=== PATIENT | female | born 1995 ===

== ENCOUNTER 2020-07-06 13:13 | Outpatient (REF) | payer OTHER, SELFPAY ==
[2020-07-06 14:00] LABS: Hematocrit 40.3 % (37-47); Hemoglobin 12.9 g/dl (12.0-16.0); Mean Corpuscular Hemoglobin 27.5 pg (27.0-33.0); Mean Corpuscular Volume 85.9 fL (80-98); Mean Platelet Volume 10.7 fL (9.4-12.3); Platelet Count 263 X10*3/uL (160-400); Red Blood Count 4.69 X10*6/uL (4.20-5.50); White Blood Count 6.7 X10*3/uL (4.8-10.8)
[2020-07-06 14:39] LABS: TSH reflex Free T4 1.09 uIU/mL (0.32-4.0)
[2020-07-06 14:44] LABS: Alanine Aminotransferase 20 U/L (0-31); Albumin Level 4.5 g/dL (3.5-5.0); Alkaline Phosphatase 56 U/L (39-117); Anion Gap 11 (12-20); Aspartate Amino Transferase 23 U/L (5-31); Bilirubin Total 0.9 mg/dL (0.0-1.0); Blood Urea Nitrogen 13 mg/dL (9-16); Carbon Dioxide 25 mmol/L (22-29); Chloride 105 mmol/L (96-108); Cholesterol 197 mg/dL; Estimated Glomerular Filt Rate > 60; Glucose Fasting 89 mg/dL (60-99); HDL Cholesterol 79 mg/dL; Iron 105 mcg/dL (30-160); LDL Cholesterol Calculated 110 mg/dl; Percent Iron Saturation 31 % (15-50); Potassium 4.3 mmol/L (3.3-5.1); Sodium 137 mmol/L (135-145); Total Iron Binding Capacity 344 mcg/dL (228-428); Total Protein 7.7 g/dL (6.5-8.0); Triglycerides 42 mg/dL; Unsaturated Iron Binding 239 ug/dL
== END 2020-07-06 13:14 | disposition home or self-care (01) ==
LOC: HO.HMGCLDS 13:13
PROVIDERS: PCP Internal Medicine; Visit Provider Internal Medicine
DX: Z00.00 Encounter for general adult medical examination without abnormal findings (principal); N92.0 Excessive and frequent menstruation with regular cycle
CPT/HCPCS: 36415; 80053; 80061; 83540; 84443; 85027; 88142

== ENCOUNTER 2020-07-20 15:22 | Outpatient (REF) | payer OTHER, SELFPAY ==
--- NOTE | ~2020-07-20 | US_ITS ---
EXAMINATION: US PELVIS COMPLETE CLINICAL INFORMATION: Excessive and frequent menstruation. COMPARISON: None TECHNIQUE: Transabdominal and transvaginal ultrasound of the pelvis was performed. FINDINGS: The uterus is anteverted and anteflexed measuring 6.9 cm in length, 3.4 cm in AP and 4.9 cm in transverse dimension. The endometrial thickness is 0.56 cm. The myometrium is homogeneous in echotexture. The right ovary measures 4.15 x 2.05 x 3.17 cm and volume 14.1 mL. It appears unremarkable. The left ovary measures 2.79 x 1.59 x 2.89 cm and volume 6.71 mL. It appears unremarkable. There is a small amount of free fluid in the cul-de-sac. US/US pelvic complete IMPRESSION: 1. Unremarkable uterus and ovaries. 2. Small amount of free fluid in cul-de-sac.
--- NOTE | ~2020-07-20 | US_ITS ---
EXAMINATION: US PELVIS COMPLETE CLINICAL INFORMATION: Excessive and frequent menstruation. COMPARISON: None TECHNIQUE: Transabdominal and transvaginal ultrasound of the pelvis was performed. FINDINGS: The uterus is anteverted and anteflexed measuring 6.9 cm in length, 3.4 cm in AP and 4.9 cm in transverse dimension. The endometrial thickness is 0.56 cm. The myometrium is homogeneous in echotexture. The right ovary measures 4.15 x 2.05 x 3.17 cm and volume 14.1 mL. It appears unremarkable. The left ovary measures 2.79 x 1.59 x 2.89 cm and volume 6.71 mL. It appears unremarkable. There is a small amount of free fluid in the cul-de-sac. US/US transvaginal IMPRESSION: 1. Unremarkable uterus and ovaries. 2. Small amount of free fluid in cul-de-sac.
== END 2020-07-20 15:23 | disposition home or self-care (01) ==
LOC: HO.US 15:22
PROVIDERS: PCP Internal Medicine; Visit Provider Internal Medicine
DX: N92.0 Excessive and frequent menstruation with regular cycle (principal)
CPT/HCPCS: 76830; 76856

== ENCOUNTER 2022-04-24 02:21 | Emergency (ER) | payer OTHER, SELFPAY ==
[2022-04-24] VITALS (9 sets, daily range): BP systolic 88–126; BP diastolic 49–79; PULSE 59–91; RESP 12–19; TEMP 36.9; O2SAT 96–100; BMI 26.6
[2022-04-24] MEDS: ondansetron HCL 4 MG/2 ML VIAL IVPUSH (02:36)
[2022-04-24] MEDS: diphenhydrAMINE HCL 50 MG/ML VIAL IVPUSH (02:36)
[2022-04-24] MEDS: LORazepam 2 MG/ML VIAL IVPUSH (02:36)
[2022-04-24] MEDS: Haloperidol Lactate 5 MG/ML VIAL IVPUSH (02:36)
[2022-04-24] MEDS: 0.9 % Sodium Chloride 1,000 ML 999 ML IV ×2 (02:53→05:13)
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
[2022-04-24 03:37] LABS: MANUAL DIFF FLAG NO
[2022-04-24 03:40] LABS: Basophils Absolute Auto 0.1 X10*3/uL (0.0-0.2); Basophils Percent Auto 0.8 % (0-2); Eosinophils Absolute Auto 0.1 X10*3/uL (0.0-0.4); Hematocrit 35.9 % (37.0-47.0); Hemoglobin 11.6 g/dl (12.0-16.0); Imm Gran Abs Auto 0.02 X10*3/uL (0.00-0.03); Imm Gran Pct Auto 0.3 % (0.0-0.4); Lymphocytes Absolute Auto 1.3 X10*3/uL (1.2-4.9); Lymphocytes Percent Auto 18.6 % (20-40); Mean Corpuscular HGB Conc 32.3 g/dl (31.0-35.0); Mean Corpuscular Hemoglobin 28.4 pg (27.0-33.0); Mean Platelet Volume 10.3 fL (9.4-12.3); Monocytes Absolute Auto 0.5 X10*3/uL (0.1-1.2); Monocytes Percent Auto 6.4 % (2-11); Neutrophils Absolute Auto 5.1 x10*3/uL (2.0-8.3); Neutrophils Percent Auto 71.9 % (45-73); Platelet Count 235 X10*3/uL (160-400); Red Blood Count 4.08 X10*6/uL (4.20-5.50); White Blood Count 7.1 X10*3/uL (4.8-10.8)
[2022-04-24 03:53] LABS: Ethanol 234 mg/dL
[2022-04-24 04:03] LABS: Alanine Aminotransferase 13 U/L (0-31); Albumin Level 4.1 g/dL (3.5-5.0); Alkaline Phosphatase 54 U/L (39-117); Anion Gap 16 (12-20); Aspartate Amino Transferase 22 U/L (5-31); Bilirubin Total 0.3 mg/dL (0.0-1.0); Blood Urea Nitrogen 14 mg/dL (9-16); Calcium 8.3 mg/dL (8.4-10.2); Carbon Dioxide 20 mmol/L (22-29); Chloride 113 mmol/L (96-108); Creatinine Clr Calc Pharmacy 98.9; Estimated Glomerular Filt Rate > 60; Glucose Random 98 mg/dL (60-115); Lipase 28 U/L (8-78); Potassium 3.6 mmol/L (3.3-5.1); Sodium 145 mmol/L (135-145); Total Protein 6.7 g/dL (6.5-8.0)
[2022-04-24 04:06] LABS: HCG Quantitative < 2 mIU/mL
--- NOTE | 2022-04-24 04:31 | PC.NURSE ---
Addendum entered by Lily Forman 04/24/22 06:33: PT sleeping, unable to complete columbia scale. Original Note: PT BP 88/49.Provider notified. NS given as ordered. PT continues to sleep, no apparent distress. Will continue to observe.
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
--- NOTE | 2022-04-24 11:52 | MHC.RECOVRN ---
Met with pt in ED17 to discuss substance use. Pt sitting in bed, eyes closed, wakes to voice. Pt reports drinking 2 mojitos, 2 [place] ice teas, and a shot of Bacardi last night. Pt reports she has been drinking daily for about a year and a half, amount daily varies. Within the 1.5 years, pts longest period without alcohol was 2 days. Pt denies ever experiencing withdrawal symptoms. Reports cravings result in continued alcohol use. Pt reports mother and father have AUD. Denies tx for alcohol use in the past. Has attempted to abstain unsuccessfully. Pts goal is abstinence. Pt educated regarding community resources and supports including ATS, recovery coaches, medications. Pt denies referrals or resources at this time, states I think I can do it on my own. Pt provided with t/w contact information if needed. Discussed with RN.
--- NOTE | 2022-04-24 11:56 | PC.NURSE ---
pt incontinent of urine, ambulated to the bathroom with an unsteady gait and 2x assist. pt reporting she needs no services when talking with Pita (recovery). pt however does report drinking daily. pt requesting warm blankets and something to eat. denies Nausea, VASQUEZ and AVH at this time. CIWA a 2 - uncertain is tremors are alcohol related or due to pt feeling cold. denies SI/HI. pt alert and oriented, wants to d/c.
--- NOTE | 2022-04-24 12:53 | PC.NURSE ---
pt drank niall makenna and ate several cracker packets. pt ambulated more independently and with steady gait. will d/c home with mom per
== END 2022-04-24 13:02 | disposition home or self-care (01) ==
PROVIDERS: Emergency Medicine Emergency Medical Services; Emergency Provider Emergency Medicine
DX: F10.129 Alcohol abuse with intoxication, unspecified (principal); R41.82 Altered mental status, unspecified; Y90.7 Blood alcohol level of 200-239 mg/100 ml; R45.1 Restlessness and agitation; Z79.899 Other long term (current) drug therapy
CPT/HCPCS: 36415; 80053; 82077; 83690; 84702; 85025; 96361; 96374; 96375; 99285; J1200; J2060; J2405

== ENCOUNTER 2022-07-31 23:19 | Inpatient (IN) | payer MEDICAID, SELFPAY ==
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
[2022-07-31] MEDS: LORazepam 2 MG/ML VIAL IM (23:34)
[2022-07-31] MEDS: Haloperidol Lactate 5 MG/ML VIAL IM (23:34)
[2022-07-31] MEDS: diphenhydrAMINE HCL 50 MG/ML VIAL IM (23:34)
[2022-07-31 23:35] VITALS: BP 114/64; PULSE 94; RESP 18; TEMP 37; O2SAT 98; BMI 21.4
[2022-07-31 23:35] LABS: MANUAL DIFF FLAG NO
[2022-07-31 23:37] LABS: Basophils Absolute Auto 0.1 X10*3/uL (0.0-0.2); Basophils Percent Auto 0.7 % (0-2); Eosinophils Absolute Auto 0.1 X10*3/uL (0.0-0.4); Eosinophils Percent Auto 1.1 % (0-4); Hematocrit 41.4 % (37.0-47.0); Hemoglobin 13.6 g/dl (12.0-16.0); Imm Gran Abs Auto 0.03 X10*3/uL (0.00-0.03); Imm Gran Pct Auto 0.4 % (0.0-0.4); Lymphocytes Absolute Auto 1.2 X10*3/uL (1.2-4.9); Lymphocytes Percent Auto 15.8 % (20-40); Mean Corpuscular HGB Conc 32.9 g/dl (31.0-35.0); Mean Corpuscular Hemoglobin 28.1 pg (27.0-33.0); Mean Corpuscular Volume 85.5 fL (80.0-98.0); Mean Platelet Volume 10.5 fL (9.4-12.3); Monocytes Absolute Auto 0.5 X10*3/uL (0.1-1.2); Monocytes Percent Auto 6.8 % (2-11); Neutrophils Absolute Auto 5.7 x10*3/uL (2.0-8.3); Neutrophils Percent Auto 75.2 % (45-73); Platelet Count 231 X10*3/uL (160-400); Red Blood Count 4.84 X10*6/uL (4.20-5.50); Red Cell Distribution Width 12.5 % (11.0-16.0); White Blood Count 7.5 X10*3/uL (4.8-10.8)
[2022-07-31 23:38] VITALS: RESP 16
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
[2022-07-31 23:53] VITALS: RESP 14
--- NOTE | 2022-08-01 | ECG_ITS ---
Test Reason : MED CLEAR Blood Pressure : / mmHG Vent. Rate : 063 BPM Atrial Rate : 063 BPM P-R Int : 154 ms QRS Dur : 082 ms QT Int : 396 ms P-R-T Axes : 022 064 056 degrees QTc Int : 405 ms Normal sinus rhythm Normal ECG No previous ECGs available Referred By: Mark Romano Electronically Signed By:RIGOBERTO CLEMONS MD
[2022-08-01 00:02] LABS: Alanine Aminotransferase 13 U/L (0-31); Albumin Level 4.6 g/dL (3.5-5.0); Alkaline Phosphatase 62 U/L (39-117); Anion Gap 19 (12-20); Aspartate Amino Transferase 22 U/L (5-31); Bilirubin Total 0.3 mg/dL (0.0-1.0); Blood Urea Nitrogen 10 mg/dL (9-16); Calcium 9.1 mg/dL (8.4-10.2); Carbon Dioxide 16 mmol/L (22-29); Chloride 112 mmol/L (96-108); Creatinine Clr Calc Pharmacy 84.6; Estimated Glomerular Filt Rate > 60; Ethanol 221 mg/dL; Glucose Random 107 mg/dL (60-115); Potassium 4.1 mmol/L (3.3-5.1); Sodium 143 mmol/L (135-145); Total Protein 7.9 g/dL (6.5-8.0)
--- NOTE | 2022-08-01 00:02 | PC.NURSE ---
Pt sleeping/resting at the bedside. Arousable to verbal stimuli. Req restraints to be removed. Left leg restraint removed. Pt became more fidgety and required multiple verbal attempts to remain calm at the bedside. Will continue to monitor.
[2022-08-01 00:05] LABS: HCG Quantitative < 2 mIU/mL
[2022-08-01 00:08] VITALS: RESP 14
[2022-08-01 00:23] VITALS: RESP 14
[2022-08-01 00:28] LABS: COVID-19 Test Negative (Negative); IDNOW Serial# 08D9AD1C
--- NOTE | 2022-08-01 00:37 | PC.NURSE ---
Pt sleeping/resting at the bedside. Calm and cooperative. Physical restraints removed. Pt covered self with blanket and continued sleeping. Breaths even regular and unlabored with equal chest rises. No apparent distress noted. Will continue to monitor.
[2022-08-01 00:38] VITALS: RESP 14
--- NOTE | 2022-08-01 01:01 | PC.NURSE ---
Pts family members, Citlalli and Shirlene, arrived at the ED to visit with pt. Visitations hours are over at this time. Family members provided with visitation hours. Family members provided phone numbers for pt to call when available. Citlalli [phone] Ar (brother) [phone]
[2022-08-01 04:16] VITALS: RESP 12
--- NOTE | 2022-08-01 04:16 | PC.NURSE ---
Pt sleeping at the bedside in no apparent distress. Breaths are even, regular, and unlabored with equal chest rises. Will continue to monitor.
[2022-08-01 07:15] LABS: Amphetamine Screen Urine Not Detected (Not Detect); Barbiturates, Urine Not Detected (Not Detect); Benzodiazepines Screen Urine Not Detected (Not Detect); Cannabinoid Screen Urine POSITIVE (Not Detect); Cocaine Screen Urine Not Detected (Not Detect); Fentanyl, urine Not Detected (Not Detect); Opiate Screen Urine Not Detected (Not Detect); Phencyclidine Screen Urine Not Detected (Not Detect)
[2022-08-01 07:16] LABS: Appearance Urine Cloudy; Color Urine Yellow; Glucose Urine UA Negative (Negative); Leukocyte Esterase Urine Negative (Negative); Nitrite Urine Negative (Negative); PH 5.5 (5.0-9.0); Specific Gravity - Urine >= 1.030 (1.005-1.025); Urine Blood Negative (Negative); Urine Ketones 15 mg/dL (Negative); Urine Protein Trace mg/dL (Neg-Trace)
--- NOTE | 2022-08-01 09:21 | PC.NURSE ---
care team at the bedside
[2022-08-01 10:14] VITALS: BP 124/65; PULSE 94; RESP 14; TEMP 37.2; O2SAT 100
--- NOTE | 2022-08-01 11:50 | PC.NURSE ---
ED provider called for librium. pt reports she drinks daily
[2022-08-01] MEDS: chlordiazePOXIDE HCl 25 MG CAPSULE 50 MG PO (12:42)
--- NOTE | 2022-08-01 12:57 | MHC.CARE ---
Patient evaluated by the CARE Team and will need inpatient psychiatric treatment. Provider updated
[2022-08-01 16:02] VITALS: BP 108/62; PULSE 71; RESP 16; TEMP 36.6; O2SAT 99
[2022-08-01 23:33] LABS: UPreg QC Valid YES; Urine Pregnancy NEGATIVE (NEGATIVE)
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
[2022-08-02 08:02] LABS: Alanine Aminotransferase 16 U/L (0-31); Albumin Level 4.1 g/dL (3.5-5.0); Alkaline Phosphatase 60 U/L (39-117); Anion Gap 12 (12-20); Aspartate Amino Transferase 27 U/L (5-31); Bilirubin Direct 0.3 mg/dL (0.0-0.5); Bilirubin Total 1.1 mg/dL (0.0-1.0); Blood Urea Nitrogen 13 mg/dL (9-16); Calcium 9.3 mg/dL (8.4-10.2); Carbon Dioxide 24 mmol/L (22-29); Chloride 107 mmol/L (96-108); Cholesterol 169 mg/dL; Creatinine Clr Calc Pharmacy 85.6; Estimated Glomerular Filt Rate > 60; Glucose Fasting 87 mg/dL (60-99); HDL Cholesterol 59 mg/dL; LDL Cholesterol Calculated 98 mg/dl; Potassium 4.4 mmol/L (3.3-5.1); Sodium 139 mmol/L (135-145); Total Protein 7.1 g/dL (6.5-8.0); Triglycerides 60 mg/dL
[2022-08-02 08:33] LABS: Folate 11.2 ng/mL (> or = 4.0); Vitamin B12 665 pg/mL (200-900)
[2022-08-02 09:29] VITALS: BP 118/63; PULSE 87; RESP 18; TEMP 36.8; O2SAT 99
[2022-08-02] MEDS: Cyanocobalamin (Vitamin B-12) 1,000 MCG TABLET 1000 MCG PO (09:32)
[2022-08-02] MEDS: Folic Acid 1 MG TABLET PO (09:32)
[2022-08-02] MEDS: Multivitamin TABLET 1 TAB PO (09:32)
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
[2022-08-02] MEDS: Thiamine HCL 100 MG TABLET PO (15:44)
[2022-08-02 20:00] VITALS: BP 111/56; PULSE 82; RESP 16; TEMP 36.8; O2SAT 100
[2022-08-02] MEDS: traZODone HCL 50 MG TABLET PO (21:26)
[2022-08-03] MEDS: Cyanocobalamin (Vitamin B-12) 1,000 MCG TABLET 1000 MCG PO (08:47)
[2022-08-03] MEDS: Folic Acid 1 MG TABLET PO (08:47)
[2022-08-03] MEDS: Multivitamin TABLET 1 TAB PO (08:47)
[2022-08-03] MEDS: Pyridoxine HCl (Vitamin B6) 50 MG TABLET PO (08:47)
[2022-08-03] MEDS: Thiamine HCL 100 MG TABLET PO (08:47)
[2022-08-03 08:51] VITALS: BP 127/59; PULSE 77; RESP 16; TEMP 36.3; O2SAT 99
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
[2022-08-03 18:00] VITALS: BP 107/58; PULSE 67; RESP 16; TEMP 36.4; O2SAT 100
[2022-08-03 20:00] VITALS: BP 114/54; PULSE 76; RESP 18; TEMP 36.7; O2SAT 100
[2022-08-03] MEDS: traZODone HCL 50 MG TABLET PO (23:33)
--- NOTE | 2022-08-04 05:09 | PC.NURSE ---
Jennifer was noted to be visible and social throughout the evening. she was pleasant and cooperative upon approach. she denies all psych symptoms and states she feels that she is ready to leave in the morning no score on CIWA patient requested not to be awoken for CIWA assessment throughout the night. continue Plan of Care, monitor for safety
[2022-08-04 08:30] VITALS: BP 115/67; PULSE 94; RESP 18; TEMP 36.6; O2SAT 98
[2022-08-04] MEDS: Folic Acid 1 MG TABLET PO (08:39)
[2022-08-04] MEDS: Thiamine HCL 100 MG TABLET PO (08:39)
[2022-08-04] MEDS: Cyanocobalamin (Vitamin B-12) 1,000 MCG TABLET 1000 MCG PO (08:39)
[2022-08-04] MEDS: Pyridoxine HCl (Vitamin B6) 50 MG TABLET PO (08:39)
[2022-08-04] MEDS: Multivitamin TABLET 1 TAB PO (08:40)
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
[2022-08-04 12:22] VITALS: BP 128/60; PULSE 80; RESP 18; O2SAT 98
--- NOTE | 2022-08-04 12:28 | PC.NURSE ---
Patient discharged to care of brother.
== END 2022-08-04 12:28 | disposition home or self-care (01) | DRG 751 ==
LOC: HO.ED 08-01 20:17 → HO.PADLT16 08-01 21:06
PROVIDERS: Admitting Provider Psychiatry & Neurology Psychiatry; Emergency Provider Internal Medicine; Visit Provider Social Worker
DX: F33.1 Major depressive disorder, recurrent, moderate (principal); R45.851 Suicidal ideations; Z20.822 Contact with and (suspected) exposure to COVID-19; Y90.7 Blood alcohol level of 200-239 mg/100 ml; F10.229 Alcohol dependence with intoxication, unspecified; Z62.810 Personal history of physical and sexual abuse in childhood; Z91.51 Personal history of suicidal behavior; Z88.0 Allergy status to penicillin; Z79.899 Other long term (current) drug therapy
CPT/HCPCS: 36415; 80053; 80061; 80076; 80307; 81003; 81025; 82077; 82607; 82746; 84443; 84702; 85025; 87635; 93005; 99285; J1200; J2060; S9485

== ENCOUNTER 2022-11-17 12:25 | Emergency (ER) | payer MEDICAID, SELFPAY ==
--- NOTE | 2022-11-17 13:02 | ED_ITS ---
HPI - URI/Sore Throat General Chief Complaint: Upper Respiratory Symptoms Stated Complaint: throat infection Time Seen by Provider: 11/17/22 13:04 Source: patient, RN notes reviewed and old records reviewed Mode of arrival: ambulatory History of Present Illness HPI Narrative: 27-year-old female with past medical history of ETOH abuse, depression, presenting to the ED complaining of left-sided sore throat x2-3 days with painful swallowing. Denies difficulty or inability to swallow, fever/chills, ear pain, cough. Admits to sharing drink with someone. Denies travel MD elicited complaint: sore throat Related Data Home Medications Medication Instructions Recorded Confirmed No Known Home Meds 08/30/22 08/30/22 Allergies Allergy/AdvReac Type Severity Reaction Status Date / Time Penicillins [PENICILLINS] Allergy Mild FAINT Verified 08/30/22 13:46 Review of Systems Review of Systems: Constitutional: No Fever, No Chills ENT/Mouth: No Ear Pain, No Nasal Congestion, No Sinus Pain, No Hoarseness, ++ sore throat, No Rhinorrhea, No Swallowing Difficulty Cardiovascular: No Chest Pain, No SOB Respiratory: No Cough, No Sputum Gastrointestinal: No Nausea, No Vomiting, No Abdominal pain Musculoskeletal: No joint pain, No Myalgias, No Joint Swelling Skin: No Skin Lesions, No rash Neuro: No Weakness Yes all other systems are reviewed and are negative Constitutional: Constitutional: Reports as per [facility] Past Medical History Attestation statement: The following information was validated with the patient. Source: old records reviewed Medical History Annual physical exam Menorrhagia Family History Family History Father Spinal stenosis Mental health disorder Substance use disorder Mother Fibromyalgia Mental health disorder Substance use disorder Social History Social History Household Members: Family Household Members Other:: Father Housing: Apartment Do you presently have visiting nurse or other home services: No Alcohol intake: current Patient Tobacco Use Status: Never used Tobacco e-Cigarette/Vaping Use: Never Used Second Hand Smoke Exposure: Yes Substance Use Type: Marijuana service: No Current occupational status: employed Sexual orientation: Don't Know Cognitive needs: No Hearing needs: No Vision needs: Yes Physical Exam Vital Signs: Vital Signs: Last Vital Signs Temp 98.5 F 11/17/22 13:03 Pulse 87 11/17/22 13:03 Resp 18 11/17/22 13:03 BP 119/70 11/17/22 13:03 Pulse Ox 100 11/17/22 13:03 O2 Del Method Room Air 11/17/22 13:03 BMI result Body Mass Index 23.0 Const: General: cooperative, healthy appearing, no acute distress, alert and awake Orientation/consciousness: patient oriented x3 Limitations: no limitations HEENT: Head: Yes normal to inspection and Yes atraumatic Ears: hearing grossly normal bilaterally, external ears normal, TM's normal bilaterally and mastoids normal General nose exam: Normal external nose present Face and sinus: Yes normal facial exam Throat: Yes uvula midline, Yes abnormal tonsil (+bilateral tonsillar erythema and exudates > left), No uvula laterally displaced and No uvular edema Eyes: General: appearance normal, both eyes and all related structures EOM: EOMs intact bilaterally Neck: Other: + left-sided submandibular lymphadenopathy Neck: Yes normal visual inspection, Yes no meningeal signs, No anterior neck swelling and No torticollis Resp: Effort & Inspection: normal respiratory effort, no respiratory distress and no stridor Auscultation: clear to auscultation bilaterally Cardio: Rate: regular rate Heart sounds: S1 normal heart sound present and S2 normal heart sound present Skin: Rashes: no rashes Wounds: no wounds Neuro: General: patient oriented x3, tone normal and no meningeal signs Cranial nerves: Yes CN's II-XII intact bilaterally Gait exam (Neuro): Normal gait present Extrem: General: Yes normal to inspection Course Course Course Narrative: -rapid strep negative, will tx with abx due to clinical findings Results discussed with patient including worrisome signs and symptoms and strict return precautions, and when to return to the emergency department. They verbalized understanding and feel safe for discharge at this time. Medical Decision Making Medical Decision Making [facility] Narrative: 27-year-old female with past medical history of ETOH abuse, depression, presenting to the ED complaining of left-sided sore throat x2-3 days with painful swallowing. On exam vital signs stable, NAD/nontoxic appearing, talking in complete sentences no drooling, handling secretions, no respiratory distress, bilateral tonsillar erythema/swelling with exudates noted greater on the left, uvula midline, no stridor. Concern for strep pharyngitis vs viral syndrome. No evidence of TOBACCO HANGER/retropharyngeal abscess. Plan: Rapid strep Please refer to course for remaining clinical decision making, interpretation of labs/imaging results, and discussions with consultants and/or family members. Differential Diagnosis Differential Diagnoses: The differential diagnosis associated with the presentation includes As above Lab Data MDM Lab Attestation statement: I reviewed the patient's lab results. Labs: Lab Results 11/17/22 Range/Units 13:06 S. pyogenes GrpA CHERYL Negative (Negative) External Record Review External record reviewed: Inpatient record, Office record, Outpatient record, Prior outpatient labs, Prior outpatient radiology, Primary care record and [facility] record Tests considered The following testing was considered but not selected: As above Prescription Management I considered prescription management with: Pain Medication and Antibiotic Discharge Plan Discharge Clinical Impression: Acute streptococcal pharyngitis Patient Disposition: Home, Self-Care Prescriptions: No Action No Known Home Meds Referrals: Dinora Wagner MD [Primary Care Provider] - 1 week
[2022-11-17 13:03] VITALS: BP 119/70; PULSE 87; RESP 18; TEMP 36.9; O2SAT 100; BMI 23.0
[2022-11-17 13:29] LABS: IDNOW Serial# 6674DD1D; Strep A Nucleic Acid Negative (Negative)
== END 2022-11-17 14:31 | disposition home or self-care (01) ==
LOC: HO.ED 14:27
PROVIDERS: Physician Assistant; Emergency Provider Emergency Medicine; PCP Internal Medicine
DX: J02.0 Streptococcal pharyngitis (principal)
CPT/HCPCS: 87651; 99282; 99283